=== PATIENT | female | born 1955 | race Caucasian/White ===

== ENCOUNTER → 2016-08-13 | Outpatient (CLI) | payer OTHER ==
[~2016-08-13] MED LIST: ADVIL200 MG PO; PROBIOTIC1 EAC2 PO; PROTONIX40 MG PO
== END | disposition disaster alternative care site (69) ==
LOC: GRAD 16:12
DX: R10.11 Right upper quadrant pain (principal); K76.89 Other specified diseases of liver

== ENCOUNTER 2016-11-10 09:48 | Observation (INO) | payer OTHER ==
[~2016-11-10] VITALS: Ht 170.2 cm; Wt 56.5 kg
--- NOTE | ~2016-11-10 | CON ---
PATIENT'S NAME: JESSICA PRIEST [facility] AGE: 61 Y [address] ROOM: [place] [address] LOCATION: GPCU ADMIT DATE: 11/10/2016 Consultation DISCHARGE DATE: 11/11/2016 FAMILY PHYSICIAN: Gallo Rosenberg MD ATTENDING PHYSICIAN: Gallo Rosenberg REFERRING PHYSICIAN: Severo Gomez MD REASON FOR CONSULT: Atypical right upper quadrant pain. HISTORY OF PRESENT ILLNESS: This is a 61-year-old female who was admitted with right upper quadrant abdominal discomfort with radiation to her right arm and shoulder as well as chest. The chest and arm pain are described as a burning and tingling sensation. She has had a CT of the abdomen that was negative. She denies any exertional chest heaviness or tightness. She has not had any problems with exertional shortness of breath. There is no report of orthopnea, PND, or peripheral edema. She denies palpitations, lightheadedness, dizziness, presyncope, or syncopal episode. 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 PAST SURGICAL HISTORY: 1. Tonsillectomy and adenoidectomy. 2. Colonoscopy with polypectomy, that were benign. ALLERGIES: TO PENICILLIN. HOME MEDICATIONS: 1. Calcium 600/200 mg 1 tablet, currently not taking. 2. Omeprazole 40 mg daily. 3. Dexilant 60 mg daily she has tried. FAMILY HISTORY: Both parents have hypertension. Father has coronary artery disease. Mother from cancer of a rare type variety, which was rapidly progressive. Mother also had pulmonary embolism after surgery. A brother of pulmonary embolism after a knee surgery. She has 2 brothers, who in a motor vehicle accident and 2 sisters who are alive and well. SOCIAL HISTORY: She is . She smokes a pack cigarettes a day, has done so far over 30 years. PATIENT'S NAME: JESSICA PRIEST [facility] AGE: 61 Y [address] ROOM: [place] [address] LOCATION: GPCU ADMIT DATE: 11/10/2016 Consultation DISCHARGE DATE: 11/11/2016 FAMILY PHYSICIAN: Gallo Rosenberg MD ATTENDING PHYSICIAN: Gallo Rosenberg REVIEW OF SYSTEMS: GENERAL: She denies any fevers or chills. HEAD: No history of headaches. EYES: No blurred vision or double vision. EARS: No problems with hearing. NOSE: No epistaxis or rhinorrhea. MOUTH: No gingival bleeding. THROAT: Denies sore throat, hoarseness, or difficulty swallowing. PULMONARY: Denies cough or hemoptysis. GASTROINTESTINAL: Negative for nausea, vomiting, or diarrhea. She has pain in the right upper quadrant. GENITOURINARY: Negative for urinary frequency, or dysuria. No hematuria is noted. MUSCULOSKELETAL: No complaints of arthralgias or myalgias. NEUROLOGIC: No TIA or CVA symptomatology. PHYSICAL EXAMINATION: VITAL SIGNS: She is 5 feet and 7 inches, weights 124 pounds with a BMI of 19.4. GENERAL: She is alert and oriented. Answers questions appropriately. SKIN: Warm, dry, and pink. HEENT: Pupils are equal, round, and react briskly. She does have senile arcus noted. Nose is non-deviated. No rhinorrhea is noted. Oral mucosa is pink and moist. No lesions noted. NECK: Soft and supple. No lymphadenopathy. No thyromegaly. JVD is flat. LUNGS: Lung sounds are clear. CV: Regular with normal S1 and S2 without murmur, rub, or click. I am unable to elicit pain with palpation of the right upper quadrant. EXTREMITIES: No peripheral edema. No clubbing. No cyanosis. Distal pulses are 2+/4. NEUROLOGIC: There is no focal defect noted. Her gait is not assessed. LABORATORY DATA: Sodium was 140, potassium was 3.7. Lipase was 51. Hemoglobin 13.6, white count 7.1, potassium was 3.9, GFR greater than 60, creatinine 0.8. ASSESSMENT: 1. Atypical chest discomfort. Cardiac enzymes had been negative as well. We will check an echocardiogram. We will also check fasting lipid profile. 2. Chronic tobacco use. She is looking at stopping smoking. We will continue support her endeavors and offer a NicoDerm patch as needed. The assessment and plan, history of present illness, and physical exam as per Dr. Gomez. We would like to thank Gallo Rosenberg for allowing us to PATIENT'S NAME: JESSICA PRIEST [facility] AGE: 61 Y [address] ROOM: [address] [address] [facility] ADMIT DATE: 11/10/2016 Consultation DISCHARGE DATE: 11/11/2016 FAMILY PHYSICIAN: Gallo Rosenberg MD ATTENDING PHYSICIAN: Gallo Rosenberg participate in the patient's care. EMELINA RODRÍGUEZ APRN FOR SEVERO GOMEZ MD TGP/modl /[id number] d: 11/13/16 2229 t: 11/18/16 1123, CONSULTATION REPORT
--- NOTE | ~2016-11-10 | CON ---
PATIENT'S NAME: JESSICA PRIEST [facility] AGE: 61 Y [address] ROOM: [place] [address] LOCATION: GPCU ADMIT DATE: 11/10/2016 Consultation DISCHARGE DATE: FAMILY PHYSICIAN: JAZZ ROSENBERG MD ATTENDING PHYSICIAN: JAZZ ROSENBERG DATE OF CONSULTATION: 11/10/2016 REFERRING PHYSICIAN: Severo Gao MD INPATIENT CONSULTATION REFERRING PHYSICIAN: Jazz Rosenberg MD CONSULTING PHYSICIAN: Leonie Cantu MD REASON FOR CONSULTATION: Abdominal pain. HISTORY OF PRESENT ILLNESS: The patient is a pleasant 61-year-old white female, who started having abdominal pain about 10 months ago in November 2015. She does not remember any precipitating factor. She states this pain has been going on intermittently. The pain is usually in the right upper quadrant. It can occur at various intervals. It may last up to days. However, there is mild baseline pain at all times. The patient says this pain does not wake her up at night. She has not noticed any relationship to meals. She has no nausea or vomiting with it. She stated her bowel movements have been irregular for a very long time. There is really no change of bowel movement with this pain. There are no precipitating factors also. She also for the last one week had noted some right-sided shoulder discomfort. She is not sure if it occurs along with the pain. However, it does seem to be associated. She has lost some weight. However, she attributes this to her family being on a low carb diet. She does complain of some nocturnal symptoms. The patient has occasionally woken up at night also. There is no particular relationship to movement. ALLERGIES: PENICILLIN. PAST SURGICAL HISTORY: No history of abdominal surgeries. She has had history of colonoscopy with large polyp removal. She has had a difficult exam in the past. Dr. Naylor scoped her about a year ago. He had found some diminutive polyps. There is no other surgical history. PATIENT'S NAME: JESSICA PRIEST [facility] AGE: 61 Y [address] ROOM: [place] [address] LOCATION: GPCU ADMIT DATE: 11/10/2016 Consultation DISCHARGE DATE: FAMILY PHYSICIAN: JAZZ ROSENBERG MD ATTENDING PHYSICIAN: JAZZ ROSENBERG FAMILY HISTORY: Both parents have hypertension. Father has coronary artery disease. Mother recently of cancer of a "rare" variety which was rapidly progressive and the patient is quite upset about that. She also thinks her mother had similar symptoms in the right upper quadrant and then was found to have cancer and this is very alarming for her. PSYCHOSOCIAL HISTORY: She smokes a pack a day. Does not use any alcohol. She is not working at this time. She is and lives with her . REVIEW OF SYSTEMS: A detailed 10-point review of systems was done. It was found to be negative other than what is mentioned in the history of present illness and past medical history. PHYSICAL EXAMINATION: GENERAL: Today, she is alert and awake. Appears to be in no acute distress. VITAL SIGNS: Temperature of 96.0. She is afebrile. Vital signs show temperature of 98.0, respiratory rate of 16, heart rate 69 per minute, and blood pressure is 125/89. HEENT: Reveals no pallor, no icterus. CHEST: Clear to auscultation bilaterally. No wheezing. No rhonchi. ABDOMEN: Soft. There is mild right upper quadrant tenderness. No rigidity, guarding, or rebound. HEAD AND ENT: Oral cavity is normal. Nasal passages are clear. NECK: No thyromegaly is felt. No masses are felt. BACK: There is no spinal tenderness. MUSCULOSKELETAL: She is able to turn and that does not elicit her to have any pain. She is also bending without any problems. No obvious injuries or deformities are seen. NEUROLOGICAL: Grossly nonfocal. LABORATORY DATA AND IMAGING STUDIES: Labs obtained today shows WBC 7.1, hemoglobin is 13.6, hematocrit 39.6, and platelet count is 186,000. Other labs are pending. ASSESSMENT AND PLAN: The patient presents with a history of right upper quadrant pain. The etiology of this is not clear. I think we should work her up again for a biliary problem. There are no real relieve or exacerbating factors. If the ultrasound is negative, we will proceed with an upper endoscopy. The pain is associated with some right-sided shoulder discomfort. Again I PATIENT'S NAME: JESSICA PRIEST [facility] AGE: 61 Y [address] ROOM: [place] [address] [facility] ADMIT DATE: 11/10/2016 Consultation DISCHARGE DATE: FAMILY PHYSICIAN: JAZZ ROSENBERG MD ATTENDING PHYSICIAN: JAZZ ROSENBERG think musculoskeletal pain will have to be kept in mind as an etiology of this pain. I do not find any clinical evidence of this at this time. We will continue to follow this patient along with you. Thank you once again for the courtesy of this consultation. ARIF MD PRICE BEDOLLA/modl /[id number] d: 11/10/16 1845 t: 11/12/16 1135, CONSULTATION REPORT
--- NOTE | ~2016-11-10 | ECHO ---
Transthoracic Echocardiography Report (TTE) Demographics Patient Name JESSICA PRIEST Date of Study 11/10/2016 Patient Number [id number] Visit Number [id number] Date of 1955 Room Number G6340 Accession Number [id number] Gender Female Age 61 year(s) Referring Shakira Henry Commercial Account Executive Yusuf Shafer RVT, Physician RDCS Physician Interpreting Sima Elkins MD Shop Mechanic Physician Supervising Ordering Physician Sima Elkins MD, MD/P Nurse Stress Scout Sniper Conclusions Contractility Score Summary Normal Left Ventricular contractility was noted. Procedure Type of Study TTE procedure:2D Echocardiogram. Procedure Date Date: 11/10/2016 Start: 01:35 PM Study Location: Inpatient Portable Technical Quality: Adequate visualization Indications:Chest pain. Appropriate Use Criteria: 8 Patient Status: Routine Rhythm: NSR HR: 68 bpm M-Mode/2D Measurements LV Diastolic Dimension: 4.29 cm LV Systolic Dimension: 2.89 cm LV Septum Diastolic: 1.04 cm LV PW Diastolic: 1.02 cm AO Root Dimension: 2.6 cm Cardiac Output: 3.53 l/min AV Cusp Separation: 1.8 cm RV Diastolic Dimension: 2.74 cm LA volume: 40 ml LVOT: 1.9 cm RV Base: 2.79 cm LVOT VTI: 18.3 cm RV Mid: 2.36 cm LV Stroke volume: 51.86 ml TAPSE: 3.19 cm TDI-S': 13.9 cm/s Doppler Measurements AV Peak Velocity: 1.28 m/s MV Peak E-Wave: 0.61 m/s AV Peak Gradient: 6.55 mmHg MV Peak A-Wave: 0.49 m/s AV Mean Gradient: 4 mmHg MV E/A Ratio: 1.24 LVOT Peak Velocity: 0.84 m/s MV P1/2t: 51 msec TR Gradient:20.79 mmHg Estimated RAP:5 mmHg Estimated PASP: 25.79 mmHg Estimated RVSP: 26 mmHg A' Septal Velocity: 0.08 m/s E' Septal Velocity: 0.1 m/s A' Lateral Velocity: 0.1 m/s E' Lateral Velocity: 0.13 m/s Findings Left Ventricle Normal left ventricle size and function. Diastolic assessment reveals normal relaxation. LVEF is 65-70% Right Ventricle Normal right ventricle structure and function. Left Atrium Normal left atrial size. The interatrial septum appears aneurysmal. There is no evidence of patent foramen ovale or atrial septal defect by color Doppler. Right Atrium Normal right atrial size. IVC measures 1.24 cm with inspiratory collapse. Mitral Valve Normal mitral valve structure and function. Trivial mitral regurgitation by color Doppler. Aortic Valve Normal aortic valve structure and function. Tricuspid Valve Mild tricuspid regurgitation by color Doppler. Pulmonic Valve Normal pulmonic valve structure and function. Pericardial Effusion No evidence of pericardial effusion. Miscellaneous Visualized portions of the aortic root and ascending aorta appear normal in size. Pleural Effusion No evidence of pleural effusion. Contractility Score LV regional wall motion:(0-Non visualized 1-Normal 2-Hypokinesis 3-Akinesis 4-Dyskinesis 5-Aneurysm) Signature dtt: Severo Gao (cardio) dtd: 11/10/16 8235
--- NOTE | ~2016-11-10 | DS ---
PATIENT'S NAME: JESSICA PRIEST [facility] AGE: 61 Y [address] ROOM: [place] [address] LOCATION: GPCU ADMIT DATE: 11/10/2016 Discharge Summary DISCHARGE DATE: 11/11/2016 FAMILY PHYSICIAN: Jazz Rosenberg MD ATTENDING PHYSICIAN: Jazz Rosenberg FINAL DIAGNOSIS: Right upper quadrant abdominal pain secondary to gastritis noted on upper gastrointestinal endoscopy, 11/11/2016, per Dr. Cantu. HOSPITAL COURSE: The patient was admitted for right upper quadrant abdominal pain, acute on chronic, and right-sided chest pain with right arm pain. I felt that she had an atypical chest pain and wanted to rule out cardiac cause for this pain, and with her longstanding history of recurrent pain in the right upper quadrant, I wanted her admitted and seen by the irrigation specialist. On my request, the patient was seen in consultation by Dr. Severo Gao, machine castings plasterer. I read Dr. Gao's notations and dictations in the chart. The patient's cardiac enzymes here showed no evidence of AK. Her echocardiogram per Thalia, Dr. Gao's PA, is normal. The morning of dismissal, the patient underwent an uncomplicated upper GI endoscopy that showed gastritis. Biopsies were done, see Dr. Cantu' final report. Dr. Cantu recommended the patient be sent home on a PPI. The patient goes out on Protonix 40 mg once a day and seen back for biopsy reports in 3 days. She is dismissed on the other medication list shown. She should be seen back earlier if she has increasing pain, fever, or increasing chest pain, and she understands. She can have diet as tolerated, but low caffeine. Here, her CBC, CMS, liver functions, amylase, lipase, and cardiac enzymes were negative. Her chest x-ray, PA and lateral, read as normal. Her EKG showed no signs of acute ischemia. JAZZ ROSENBERG MD SENIOR MANAGER [employer]/modl PATIENT'S NAME: JESSICA PRIEST [facility] AGE: 61 Y [address] ROOM: [place] [address] [facility] ADMIT DATE: 11/10/2016 Discharge Summary DISCHARGE DATE: 11/11/2016 FAMILY PHYSICIAN: Jazz Rosenberg MD ATTENDING PHYSICIAN: Jazz Rosenberg /[id number] d: 11/11/16 1407 t: 11/15/16 1205, DISCHARGE SUMMARY
--- NOTE | 2016-11-10 11:29 | NUR ---
61 Y/O FEMALE ADMITTED FOR DR THACKER FOR RT UPPER QUADRANT PAIN WHICH SHE HAS HAD SINCE ABOUT JAN-MARCH 2016. PT STATES THAT THE DR HAS DONE MANY TESTS BUT HAS NOT FOUND MUCH. PT HAS ALSO C/O RT UPPER CHEST, SHOULDER AND RT ARM TINGLING FOR THE PAST WEEK. PT ALLERGIES - CEPHALEXIN=DIFF BREATHING & TONGUE SWELLING CODEINE=MAKES HER FEEL LIKE HER SKIN IS CRAWLING MEDICAL & SURGICAL HISTORY - TONSILS A CHILD, REMOVAL OF A LARGE COLON POLYP AT [facility] IN 2012 WHICH WAS BENIGN. GIBSON'S CYST BACK OF RT KNEE. PT IS A SMOKER X30 YRS - 1PPD. HX OF HAVING SHINGLES. ALSO PT STATES THAT HER MON HAD PE'S AFTER HER SURGERIES AND THAT HER BROTHER HAD A KNEE SURGERY AND SHORTLY AFTER HE AT HOME, THE AUTOPSY SHOWED HE HAD BLOOD CLOTS. REPORT GIVEN TO PT PRIMARY CARE NURSE GAGANDEEP ALVAREZ ADM EDUC COMPLETED
[2016-11-10 12:09] LABS: BASOPHIL # 0.1 K/uL (0.0-0.2); BASOPHIL % 0.7 %; EOSINOPHIL # 0.1 K/uL (0.0-0.5); EOSINOPHIL % 0.8 %; HEMATOCRIT 39.6 % (33.0-46.0); HEMOGLOBIN 13.6 g/dL (10.0-15.0); IMMATURE GRANULOCYTE % 0.3 %; LYMPHOCYTE # 2.1 K/uL (0.8-4.0); MCH 32.8 pg (27.0-34.0); MCHC 34.3 gm/dL (32.0-36.5); MCV 95.4 fl (83.0-98.0); MONOCYTE # 0.4 K/uL (0.0-1.0); MONOCYTE % 4.9 %; MPV 10.8 fl (9.4-12.4); NEUTROPHIL # (ANC) 4.6 K/uL (1.8-7.8); NEUTROPHIL % 64.3 %; NRBC % 0 /100WBC (0-0.00); PLATELET COUNT 186 K/uL (150-450); RBC 4.15 M/uL (3.50-5.50); RDW-CV 11.8 % (11.9-14.6); WBC 7.1 K/uL (4.0-11.0)
[2016-11-10 12:38] LABS: ALBUMIN 4.1 gm/dL (3.5-5.0); ALK PHOS 74 IU/L (33-138); ALT 21 IU/L (12-78); ANION GAP 8.9 (10.0-19.0); AST 16 IU/L (10-40); BLOOD UREA NITROGEN 11 mg/dL (6-24); CALCIUM 8.9 mg/dL (8.5-10.5); CHLORIDE 108 mMol/L (96-110); CO2 27 mMol/L (22-32); CPK 82 IU/L (21-215); CREATININE 0.8 mg/dL (0.5-1.1); ESTIMATED GFR (MDRD EQUATION) > 60; POTASSIUM 3.9 mMol/L (3.7-5.1); SODIUM 140 mMol/L (135-145); TOTAL PROTEIN 7.5 g/dL (6.0-8.4)
[2016-11-10 12:41] LABS: ALBUMIN 4.1 gm/dL (3.5-5.0); TOTAL BILIRUBIN 1.1 mg/dL (0.0-1.5); TOTAL PROTEIN 7.4 g/dL (6.0-8.4)
[2016-11-10 12:50] LABS: BILIRUBIN URINE NEGATIVE (NEGATIVE); BLOOD URINE NEGATIVE /UL (NEGATIVE); COLOR URINE YELLOW (YELLOW); GLUCOSE URINE NEGATIVE (NEGATIVE); KETONE URINE NEGATIVE (NEGATIVE); LEUKOCYTES URINE NEGATIVE /UL (NEGATIVE); NITRITE URINE NEGATIVE (NEGATIVE); PROTEIN URINE NEGATIVE (NEGATIVE); TURBIDITY URINE CLEAR (CLEAR); UROBILINOGEN URINE NORMAL (NORMAL)
[2016-11-10] MEDS ORDERED: PROBIOTIC1 EAC2 PO (15:08)
--- NOTE | 2016-11-10 19:06 | NUR ---
Significant Event: VSS, AFEBRILE. DENIES PAIN. ABDOMINAL US, CXR, ECHO, AND EKG DONE. CARDIOLOGY AND GI CONSULTS. ENZYMES, EKG, US ARE NEGATIVE. PLAN FOR AN EGD TOMORROW WITH DR. ZAFAR. VOIDS WITH ADEQUATE UOP. Follow up: CONTINUE PLAN OF CARE.
--- NOTE | 2016-11-11 05:15 | NUR ---
Alert and oriented. Cooperative and appreciative. No PRN pain meds needed this shift. VSS. Afebrile. NPO since 399 for an EGD. Denies N/T. D5 06/02 NS @ 75. Continue plan of care, discharge when appropriate.
[2016-11-11] MEDS ORDERED: PROTONIX40 MG PO (11:24)
--- NOTE | 2016-11-11 12:55 | NUR ---
DISCHARGE: A/O X3. UP AD [place]. C/O MINIMAL PAIN TO RUQ. EGD DONE THIS AM. WILL R/U WITH DR. THACKER ON THURSDAY FOR BIOPSY RESULTS. VSS. DISCHARGE INSTRUCTIONS DISCUSSED. NEW MEDICATION REVIEWED. NO FURTHER QUESTIONS. PIV REMOVED. TAKEN TO [facility] BY RN @ 1200.
[2016-12-25] MEDS ORDERED: ADVIL200 MG PO (09:09)
== END 2016-11-11 12:00 | disposition disaster alternative care site (69) ==
LOC: GPCU 09:48
PROVIDERS: Nurse Practitioner Acute Care; ADMIT Family Medicine
PROC: 0DB88ZZ Excision of Small Intestine, Via Natural or Artificial Opening Endoscopic (ICD-10-PCS; principal; 2016-11-11)
PROC: 0DB68ZZ Excision of Stomach, Via Natural or Artificial Opening Endoscopic (ICD-10-PCS; 2016-11-11)
DX: K31.89 Other diseases of stomach and duodenum (principal); F17.210 Nicotine dependence, cigarettes, uncomplicated; Z86.010 Personal history of colon polyps; Z79.899 Other long term (current) drug therapy; Z88.0 Allergy status to penicillin
CPT/HCPCS: G0378; G0379; J7120

== ENCOUNTER → 2016-12-29 | Day surgery (SDC) | payer OTHER ==
[~2016-12-29] VITALS: Ht 170.2 cm; Wt 59.2 kg
== END ==
LOC: GPOC 12-25 09:00 → GEND 07:21 → GPOC 09:00
PROC: 0DJ08ZZ Inspection of Upper Intestinal Tract, Via Natural or Artificial Opening Endoscopic (ICD-10-PCS; principal; 2016-12-29)
DX: K29.70 Gastritis, unspecified, without bleeding (principal); K44.9 Diaphragmatic hernia without obstruction or gangrene; F17.200 Nicotine dependence, unspecified, uncomplicated; Z98.890 Other specified postprocedural states; Z79.899 Other long term (current) drug therapy; Z88.1 Allergy status to other antibiotic agents; Z88.5 Allergy status to narcotic agent
CPT/HCPCS: J2001; J7030